=== PATIENT | male | born 1935 | race Caucasian/White ===

== ENCOUNTER 2021-09-03 15:53 | Emergency (ER) | payer MEDICARE, BC ==
[2021-09-03 16:24] VITALS: RESP 18; TEMP 98.6
[2021-09-03] MEDS ORDERED: SODIUM CHLORIDE 0.9% 1,000 ML IV STA (16:37)
--- NOTE | 2021-09-03 16:37 | ED ---
General Adult HPI - General Chief complaint: Fall Stated complaint: Fall Time Seen by Provider: 09/03/21 16:21 Source: patient, EMS, RN notes reviewed, old records reviewed Mode of arrival: EMS Limitations: no limitations - History of Present Illness Initial comments: Patient is an 86-year-old male with past medical history remarkable for prior T- spine and L-spine surgery, dementia, hypertension radiates that home with a walker at baseline presents emergency Department after a fall. Patient is a history of orthostatic hypotension with near syncopal episodes. He believes he may have had a syncopal episode when he stood up from the couch earlier today. This is prior to arrival. He stood up quickly, took a few steps and then fell backwards when he said that his vision began to black out. Next thing he knew he was lying on the ground. He landed and struck his head on the ground. He was complaining of back pain, neck pain, head pain, leg pain. EMS was called and was brought to the emergency department for further evaluation. Patient is not on blood thinners. His no other acute complaint at this time.Patient denies any chest pain, shortness breath, abdominal pain, nausea, vomiting. He has no other acute complaints at this time. - Related Data Home Medications Medication Instructions Recorded Confirmed Aspirin EC [Ecotrin Low Dose] 81 mg PO HS 09/03/21 09/03/21 Atorvastatin [Lipitor] 10 mg PO HS 09/03/21 09/03/21 Bisoprolol-Hctz 5-6.25 mg [Ziac 1 tab PO DAILY 09/03/21 09/03/21 5-6.25 MG] Calcium Carbonate/Vitamin D3 1 tab PO DAILY 09/03/21 09/03/21 [Calcium 600 mg-Vit D3 10 mcg (400 Unit)] Cholecalciferol (Vitamin D3) 125 mcg PO DAILY 09/03/21 09/03/21 [Vitamin D3 (125 MCG = 5,000 IU)] Docusate Sodium [Dok] 100 mg PO DIRECTED 09/03/21 09/03/21 Docusate Sodium [Dok] 100 mg PO DAILY 09/03/21 09/03/21 Donepezil HCl [Aricept] 10 mg PO DAILY 09/03/21 09/03/21 Glucosamine Sulfate 1,500 mg PO DAILY 09/03/21 09/03/21 Isosorbide Mononitrate ER [Imdur] 30 mg PO DAILY 09/03/21 09/03/21 Lactulose 10 gm PO BID PRN 09/03/21 09/03/21 Melatonin 3 - 6 mg PO HS 09/03/21 09/03/21 Mirabegron [Myrbetriq] 25 mg PO HS 09/03/21 09/03/21 Mirtazapine [Remeron] 30 mg PO HS 09/03/21 09/03/21 Multivit-Min/FA/Lycopen/Lutein 1 tab PO DAILY 09/03/21 09/03/21 [Centrum Silver Tablet] Nortriptyline HCl 10 mg PO HS 09/03/21 09/03/21 Omeprazole 20 mg PO DAILY 09/03/21 09/03/21 Tamsulosin [Flomax] 0.8 mg PO HS 09/03/21 09/03/21 amLODIPine [Norvasc] 5 mg PO DAILY 09/03/21 09/03/21 polyethylene glycoL 3350 [Miralax] 17 gm PO DAILY PRN 09/03/21 09/03/21 traMADol HCL [Ultram] 100 mg PO Q6HR 09/03/21 09/03/21 Allergies Allergy/AdvReac Type Severity Reaction Status Date / Time fentanyl AdvReac Anaphylaxis Verified 09/03/21 18:01 morphine AdvReac Anaphylaxis Verified 09/03/21 18:01 Review of Systems ROS Statement: Those systems with pertinent positive or pertinent negative responses have been documented in the HPI. Review of Systems: CONST: Denies fever EYES: Denies blurry vision ENT: Denies nasal congestion C/V: Denies Chest pain RESP: Denies shortness of breath GI: Denies abdominal pain : Denies dysuria SKIN: Denies rash. MSK: Endorses back pain, left leg pain NEURO: Denies headache ROS Other: All systems not noted in ROS Statement are negative. Past Medical History Past Medical History: Hyperlipidemia, Hypertension History of Any Multi-Drug Resistant Organisms: None Reported Additional Past Surgical History / Comment(s): unable to obtain Past Psychological History: No Psychological Hx Reported Smoking Status: Never smoker Past Alcohol Use History: None Reported Past Drug Use History: None Reported General Exam - General Exam Comments Initial Comments: General: There is a mild distress secondary to back pain. Has a hard c-collar in place. HEAD: Normal with no signs of head trauma. Step-offs or deformities palpated. No raccoon eyes. No Villalta sign. No signs of basilar skull fracture. EYES: PERRLA, EOMI, conjunctiva normal, no discharge. Pupils are 3 mm and equal bilaterally. ENT: Hearing grossly intact, normal oropharynx. Trachea is midline. RESPIRATORY: Clear breath sounds bilaterally. No wheezes, rales, or rhonchi. C/V: Regular rate and rhythm. S1 and S2 auscultated, no edema, peripheral pulses 2+ and intact throughout ABD: Abd is soft, nontender, nondistended EXT: Reduced range of motion of the left knee secondary to pain. Acute on chronic back pain in the thoracic and lumbar spines midline. Patient also has mild C-spine tetanus palpation in the midline. He is in a hard cervical collar. Pelvis is stable. SKIN: No rashes or lesions observed on exposed skin. NEURO: Alert and oriented 4. Cranial nerves II-12 intact. No focal sensory or strength deficits. NIH is 0. GCS is 15. Ambulate with walker at baseline. Limitations: no limitations Course Vital Signs 09/03/21 09/03/21 16:01 20:30 Temperature 98.6 F Pulse Rate 70 66 Respiratory 18 18 Rate Blood Pressure 177/66 160/72 O2 Sat by Pulse 92 L 94 L Oximetry Medical Decision Making - Medical Decision Making Based on patient's presentation and physical exam, does appear that he may have experienced a syncopal episode, likely orthostatic as he does have a history of orthostatic hypotension and syncope at home resulting in a fall and is having acute on chronic back pain and neck pain. He fell from a standing height and is not on blood thinners. Does not meet criteria for trauma activation. We will obtain plain, x-rays of the chest, pelvis, as well as left leg. We'll obtain CT head, neck, T and L-spine. He'll be treated with analgesia, tramadol. We will obtain cardiac laboratory studies. Patient and family were in agreement this plan. Cervical spine precautions were followed. EKG shows a left bundle branch block with no prior EKG for comparison. Laboratory studies reveal a hyponatremia of 130, as well as a negative troponin. Remaining labs are unremarkable. Chest x-ray shows no acute process. Pelvic x-ray shows no acute fracture or dislocation of the pelvis. Left leg x-ray shows no acute fracture or some exertion. CT C-spine revealed mild rotation of the atlantooccipital joint with a transition of C2 in relation to C1 on the right concerning for ligamentous injury. CT head shows chronic changes without any acute intracranial process. CT lumbar and thoracic spine revealed no acute fracture dislocation. Due to the patient's CT C-spine findings, I did speak with orthopedic surgery on-call. I initially talked with Dr. Martinez of orthopedic surgery, who contacted the group insurance specialist, Dr. Vasquez. I did wait a period of time before Dr. Gresham's and called back, and he reviewed the imaging. He is out of town and cannot complete the surgery, but did notice that the patient has a C1 lateral mass fracture which is causing the translocation. He believes that the patient requires fusion. He recommended that I speak with Dr. [facility]hardw[facility] to see if he can perform surgery. We page Dr. Bhardwaj, and he is also out of town and cannot complete surgery. Therefore patient is to be transferred. I spoke the patient's family and the patient regarding transfer. Initially we will attempt to transfer the patient [place]. There is a delay as we are waiting for both transfer lines to respond to our calls, however we were refused from multiple hospitals overall. Finally on the fifth hospital that we called, who accepted the patient. Patient be transferred to the emergency department in serous condition. Delay in transfer stemmed from the need to contact 3 separate ortho providers here and then need to contact multiple hospitals for transfer and the delays involved with communication. I spoke with Dr. Grier who is the accepting physician at [facility]. Patient will be transferred in serious condition. I spoke with patient's family and they were in agreement this plan.Patient will be maintained in a cervical collar at this time. - Lab Data Result diagrams: 09/03/21 21:08 09/03/21 18: Lab Results 09/03/21 09/03/21 09/03/21 Range/Units 18: 18: 21:08 WBC 9.6 (3.8-10.6) k/uL RBC 4.31 (4.30-5.90) m/uL Hgb 13.6 (13.0-17.5) gm/dL Hct 40.1 (39.0-53.0) % MCV 93.1 (80.0-100.0) fL MCH 31.4 (25.0-35.0) pg MCHC 33.8 (31.0-37.0) g/dL RDW 13.2 (11.5-15.5) % Plt Count 267 (150-450) k/uL MPV 6.8 Neutrophils % 80 % Lymphocytes % 14 % Monocytes % 4 % Eosinophils % 0 % Basophils % 0 % Neutrophils # 7.7 (1.3-7.7) k/uL Lymphocytes # 1.3 (1.0-4.8) k/uL Monocytes # 0.4 (0-1.0) k/uL Eosinophils # 0.0 (0-0.7) k/uL Basophils # 0.0 (0-0.2) k/uL Sodium 130 L (137-145) mmol/L Potassium 4.5 (3.5-5.1) mmol/L Chloride 97 L (98-107) mmol/L Carbon Dioxide 25 (22-30) mmol/L Anion Gap 8 mmol/L BUN 19 (9-20) mg/dL Creatinine 0.94 (0.66-1.25) mg/dL Est GFR (CKD-EPI)AfAm 84 (>60 ml/min/1.73 sqM) Est GFR (CKD-EPI)NonAf 72 (>60 ml/min/1.73 sqM) Glucose 111 H (74-99) mg/dL Calcium 9.7 (8.4-10.2) mg/dL Magnesium 2.0 (1.6-2.3) mg/dL Total Bilirubin 0.4 (0.2-1.3) mg/dL AST 25 (17-59) U/L ALT 15 (4-49) U/L Alkaline Phosphatase 85 (38-126) U/L Troponin I <0.012 (0.000-0.034) ng/mL Total Protein 7.3 (6.3-8.2) g/dL Albumin 4.2 (3.5-5.0) g/dL - EKG Data -: EKG Interpreted by Me EKG Comments: 12-lead Electrocardiogram Interpretation Note EKG was reviewed and interpreted by myself. 12-lead ECG performed at 2016 is interpreted by me as revealing normal sinus rhythm with first-degree AV block. At a rate of 66 beats per minute. Left axis deviation. NV interval is 282 ms, QR scientologist is 130 ms, QTc is 440 ms.. Patient has a left bundle branch block... R wave progression across precordium was delayed.. By my interpretation this EKG is non-diagnostic for acute ischemia. No prior EKG for comparison. Critical Care Time Critical Care Time: Yes Total Critical Care Time: 30 Critical Care Time: Upon my evaluation, this patient had a high probability of imminent or life- threatening deterioration due to C1 fracture, which required my direct attention, intervention, and personal management. I have personally provided 30 minutes of critical care time exclusive of time spent on separately billable procedures. Time includes review of laboratory data, radiology results, discussion with consultants, and monitoring for potential decompensation. Interventions were performed as documented in my note. Disposition Clinical Impression: Syncope, Fall, C1 cervical fracture Disposition: OTHER INSTITUTION NOT DEFINED Condition: Serious Referrals: Ray Plasencia DO [Primary Care Provider] - 1-2 days - Out of Hospital Transfer - Req. Specs Out of Hospital Transfer - Requested Specifics: Other Emergency Center (Transfer for escalation of care with neurosurgery or ortho surgery for C1 fracture.)
[2021-09-03] MEDS ORDERED: traMADol 50 MG TAB PO STA ×2 (16:40→21:13)
[2021-09-03] MEDS ORDERED: KETOROLAC 15 MG/ML 1 ML VIAL IM STA (17:17)
[2021-09-03] MEDS ORDERED: ONDANSETRON 4 MG/2 ML VIAL IVP STA (17:17)
[2021-09-03] MEDS ORDERED: LIDOCAINE 5% PATCH TOPICAL STA (17:40)
[2021-09-03 18:22] LABS: Albumin 4.2 g/dL (3.5-5.0); Calcium 9.7 mg/dL (8.4-10.2); Potassium 4.5 mmol/L (3.5-5.1); Total Bilirubin 0.4 mg/dL (0.2-1.3); Total Protein 7.3 g/dL (6.3-8.2)
--- NOTE | 2021-09-03 18:26 | CT ---
EXAMINATION TYPE: CT brain jennifer wo con DATE OF EXAM: 09/03/2021 COMPARISON: None HISTORY: Syncope with fall, head injury and pain. TECHNIQUE: CT scan of the head and cervical spine performed without contrast CT DLP: 1565.2 mGycm Automated exposure control for dose reduction was used. FINDINGS: CT HEAD: No evidence for acute intracranial hemorrhage, midline shift or mass effect. There is a focal area of encephalomalacia in the right parietal lobe. There is mild brain volume loss . There is chronic microvascular ischemic changes. No hydrocephalus. There are scattered tiny low att enuating lesions in the bilateral basal ganglia. No acute orbital, osseous or soft tissue abnormality. Mild mucosal thickening ethmoid sinuses. Mastoid air cells and paranasal sinuses are radiated. CT CERVICAL SPINE: There is mild rotation at the atlantoaxial joint. There is 8mm anterior translation of C2 in relation to C1 on the right. The atlantooccipital joint is maintained. Slight straightening of the cervical curvature. Vertebral body heights are normal. Posterior elements are acutely intact. No facet joint displacement . There are severe multilevel narrowing of the intervertebral spaces and bilateral neural foraminal millicent rowing. Multilevel disc osteophyte complexes are noted extending from C3-4 to C7-T1. Ventral bony spu rs are also evident. Significant soft tissue swelling. The prevertebral soft tissues are normal in thickness. There is asymmetric narrowing of the upper airways is partially evaluated on this is seen on series 2 05 image 3 and series 206 image 1. IMPRESSION: 1.THERE IS MILD ROTATION AT THE ATLANTOAXIAL JOINT. THERE IS 8MM ANTERIOR TRANSLATION OF C2 IN RELATI ON TO C1 ON THE RIGHT. FINDINGS ARE CONCERNING FOR LIGAMENTOUS INJURY, CORRELATION WITH CERVICAL SPIN E MRI RECOMMENDED. 2. NO EVIDENCE FOR ACUTE INTRACRANIAL HEMORRHAGE MIDLINE SHIFT OR MASS EFFECT. 3. RIGHT PARIETAL LOBE ENCEPHALOMALACIA, MILD BRAIN VOLUME LOSS AND CHRONIC MICROVASCULAR ISCHEMIC CH ANGES AND BILATERAL BASAL GANGLIA LACUNAR INFARCTS. I CALLED DR. ERICKA BEST WITH ABOVE CRITICAL RESULTS @ 6:23PM. COMMUNICATION ACKNOWLEDGED.
--- NOTE | 2021-09-03 18:38 | CT ---
EXAMINATION TYPE: CT thor lumbar spine wo con DATE OF EXAM: 09/03/2021 COMPARISON: None HISTORY: Syncope with fall, head injury and pain. TECHNIQUE: CT scan of the thoracic and lumbar spine CT DLP: 2322.5 mGycm Automated exposure control for dose reduction was used. FINDINGS: There is limited evaluation due to patient's positioning. Thoracic and lumbar spine: There is a relatively maintained alignment of the thoracic and lumbar spine. There is perhaps some mi ld straightening of the lumbar curvature. There is diffuse osteopenia. Spinal fixation hardware is noted and extends from T9 to L4. Hardware ap pears intact. Bony resorption is noted around the surgical hardware. Laminectomy changes are noted in the lumbar spine. The vertebral body heights maintained. Posterior elements appear acutely intact. There is multilevel narrowing of the intervertebral spaces including the thoracic and lumbar spine ranging from mild to m oderate in degrees. There is extensive facet joint arthropathy associated with the surgical hardware. Remote fractures involving the spinous processes of T2 and T4. There are degenerative changes in the bilateral right greater than left sacroiliac joints. There is mild ectasia of the ascending aorta. There are extensive atherosclerotic calcifications in the thoracic and abdominal aorta. Other findings : The thyroid gland is not enlarged. Heart is normal in size. No pericardial effusion. There are coronary arterial calcifications. There is an air-filled cysts measuring 1.7 cm in the right upper lobe. There is right lung atelectasi s, the patient was laying on his right side when he was scanned. There are calcified mediastinal and hilar lymph nodes. The airways are patent. There is a moderate-sized gastroesophageal hiatal hernia Evaluation of the abdomen and pelvis is suboptimal. Multiple tiny calcific densities are seen in the spleen. Mild atrophy of both kidneys. No renal collecting system dilatation. No obvious free air seen in the abdomen. No significant fluid seen in the abdomen or pelvis. IMPRESSION: NO ACUTE FRACTURE OR DISLOCATION APPRECIATED IN THE THORACIC AND LUMBAR SPINE. PLEASE REFER TO BODY OF REPORT FOR ADDITIONAL INCIDENTAL FINDINGS IN THE CHEST AND ABDOMEN.
--- NOTE | 2021-09-03 20:35 | XR ---
EXAMINATION TYPE: XR knee complete LT, XR tibia fibula LT DATE OF EXAM: 09/03/2021 CLINICAL HISTORY: Fall injury with pain. TECHNIQUE: Three views of the left knee are obtained. 2 views left leg. COMPARISON: None. FINDINGS: There is no acute fracture/dislocation evident in left knee. Metallic hardware from total left knee arthroplasty is satisfactory in position. Mild posterior arterial vascular calcification. No acute fracture or dislocation in the left tibia or fibula. Left ankle joint appears within normal limits. Overlying soft tissue is unremarkable. IMPRESSION: There is no acute fracture or dislocation in the left leg or knee.
--- NOTE | 2021-09-03 20:36 | XR ---
EXAMINATION TYPE: XR pelvis AP view DATE OF EXAM: 09/03/2021 CLINICAL HISTORY: Fall injury with pain. TECHNIQUE: A single AP view of the pelvis is obtained. COMPARISON: None. FINDINGS: There is no acute fracture/dislocation evident in the pelvis. The hip and sacroiliac join ts appear symmetric and unremarkable. Pubic symphysis is intact. Surgical clips overlie the right rose ac crest. Partial visualization of surgical changes in the lumbar spine. IMPRESSION: There is no acute fracture or dislocation in the pelvis.
--- NOTE | 2021-09-03 20:37 | XR ---
EXAMINATION TYPE: XR chest 1V DATE OF EXAM: 09/03/2021 COMPARISON: NONE HISTORY: Fall with pain. TECHNIQUE: Single frontal supine view of the chest is obtained. FINDINGS: There is no focal air space opacity, pleural effusion, or pneumothorax seen. The cardiac silhouette size is upper limits of normal. Partial visualization of long segment surgical hardware in the mid to lower thoracic spine extending into lumbar spine. IMPRESSION: NO ACUTE PROCESS.
[2021-09-03 21:15] VITALS: BP 160/72; PULSE 66
[2021-09-03 21:31] LABS: Basophils % (A) 0 %; Eosinophils % (A) 0 %; HCT 40.1 % (39.0-53.0); HGB 13.6 gm/dL (13.0-17.5); Lymphocytes # (A) 1.3 k/uL (1.0-4.8); Lymphocytes % (A) 14 %; MCH 31.4 pg (25.0-35.0); MCHC 33.8 g/dL (31.0-37.0); MCV 93.1 fL (80.0-100.0); Mean Platelet Volume 6.8; Monocytes # (A) 0.4 k/uL (0-1.0); Monocytes % (A) 4 %; Neutrophils # (A) 7.7 k/uL (1.3-7.7); Neutrophils % (A) 80 %; Platelet Count 267 k/uL (150-450); RBC 4.31 m/uL (4.30-5.90); RDW 13.2 % (11.5-15.5); WBC 9.6 k/uL (3.8-10.6)
== END 2021-09-03 22:06 | disposition other institution (70) ==
LOC: EC 15:53
DX: S12.000A Unspecified displaced fracture of first cervical vertebra, initial encounter for closed fracture (principal); R55 Syncope and collapse; I10 Essential (primary) hypertension; E78.5 Hyperlipidemia, unspecified; Z88.5 Allergy status to narcotic agent; Z79.899 Other long term (current) drug therapy; Z79.82 Long term (current) use of aspirin; W19.XXXA Unspecified fall, initial encounter; Y92.009 Unspecified place in unspecified non-institutional (private) residence as the place of occurrence of the external cause
CPT/HCPCS: 36415; 93005; 80053; 83735; 84484; 85025; 72170; 73590; 73562; 71045; 72128; 72125; 72131; 70450; 99291; 96374; 96372; 96361; J2405; J1885